=== PATIENT | female | born 1955 | race Caucasian/White ===

== ENCOUNTER → 2017-05-23 | Outpatient (CLI) | payer OTHER | LOC: FIMAGING 14:39 | PROVIDERS: ATTEND Specialist | DX: R93.41 Abnormal radiologic findings on diagnostic imaging of renal pelvis, ureter, or bladder (principal) ==

== ENCOUNTER 2017-05-24 12:19 | Emergency (ER) | payer OTHER ==
[2017-05-24 12:28] VITALS: TEMP 97.9
--- NOTE | 2017-05-24 12:33 | EDPHY ---
HPI/HX/ROS/PE/MDM Narrative: CHIEF COMPLAINT: Kidney stone HISTORY OF PRESENT ILLNESS: This patient is a 62 year old female with recent diagnosis of renal calculus complaining of left-sided abdominal and back pain. Six weeks ago, she was diagnosed with a 9x5mm kidney stone in the left kidney at the [facility] (?) at [facility]. Since then, she has had episodic severe bladder spasms. She was evaluated by her PCP and an x-ray showed suspected bladder stone. Urine culture positive at that time as well. She has been taking Keflex and Flomax. She has noticed a mucous-like discharge in her urine. Monday night, developed severe bladder cramping. She visited the ER at [facility], and CT located the stone at the [facility]. She had appointment with Dr. Birmingham yesterday and is scheduled for surgery Monday, as it seems the stone is too big to pass. This morning around 5:30am, the patient had considerable pain in her back and her bladder area. She took Percocet and was able to sleep, but her pain increased again around 10am. She has had no relief with another Percocet and a heating pad. Her discomfort is 10/ 10 in severity. She endorses associated nausea. No fever, chills, chest pain, shortness of breath, palpitations, vomiting, diarrhea, headache, lightheadedness. REVIEW OF SYSTEMS: Aside from elements discussed in the HPI, a comprehensive 10-point review of systems was reviewed and is negative. PAST MEDICAL HISTORY: Asthma. Hyperlipidemia. SOCIAL HISTORY: Daughter at bedside. . Lives in [place]. 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 VITAL SIGNS: Reviewed by me GENERAL: Well-developed, well-nourished, uncomfortable appearing. HEENT: Atraumatic. Eyes: No icterus, no injection. Mouth: Dry lips, dry mucous membranes. No erythema or lesions. Neck: supple with no adenopathy. LUNGS: Clear to auscultation bilaterally, no wheezes, rhonchi or rales. CARDIAC: Regular rate and rhythm, no rubs, murmurs or gallops. ABDOMEN: Left lower quadrant tenderness. Soft, nondistended, no guarding or rebound. BACK: Left flank pain. EXTREMITIES: No trauma. No edema. Range of motion is normal throughout. NEURO: Alert and oriented, grossly nonfocal. SKIN: Warm and dry, no rash. PSYCHIATRIC: Normal mentation, no agitation. Portions of this note were transcribed by a medical insurance biller. I personally performed a history, physical exam, medical decision making, and confirmed accuracy of information the transcribed note. ED Course: This 62 y/o female presents with left-sided back and abdominal pain secondary to a known kidney stone. Exam reveals left flank tenderness and LLQ tenderness. Plan to administer 30mg IV Toradol, 1mg IV Dilaudid and 4mg IV Zofran for symptom relief. Plan for labs including CBC, chemistries, UA. Plan for CT abdomen/pelvis to re-visualize stone. 14:[address] Hedrick, radiologist. 7x5mm stone at the bladder side of the left UVJ visualized on CT. Reassessed patient. She is feeling better following medication administration. Discussed imaging results. Patient and her family are concerned regarding her ongoing discomfort in as well as her ability to passage of large stone. I have tried accessed the records from a [facility] on chorea 0 to see the location of the stone on Monday, 2 days ago. Patient tells me that the stone was just outside the bladder and so she feels like the stone has moved through the bladder wall and is hopeful that she will improve with fluids and time. 14:[address] Vergara, urologist. Recommends toradol po, flomax BID, and narcotics if needed. Patient herself is comfortable being discharged home. She was given a prescription for Zofran which she had previously not had, Toradol with careful instructions regarding is no more than 4 days use, oral Dilaudid with instructions regarding not to mix the oral Dilaudid with Percocet, and return to the emergency department precautions. They will call Dr. Childs office to arrange close follow-up. MDM: Differential diagnosis of the patient's flank pain and abdominal pain was considered including but not limited to hydronephrosis, hydroureter, complicated urinary tract infection, extravasation of urine, kidney rupture, kidney stone. - Data Points Imaging Results: Imaging Impressions Abdomen/Pelvis CT 05/24/17 13:16 Impression: 7 x 5 mm calculus in the bladder side of the left ureterovesical junction. Moderate left hydroureter and hydronephrosis. Results called and discussed with Africa Chen MD on 05/24/2017 at 1401 hours. Attention: This CT examination is specifically designed to evaluate patients who are clinically suspected of having acute obstructive uropathy. This examination does not use radiographic contrast, and as such, provides only a limited evaluation of the abdomen, pelvis and retroperitoneum. If there is further clinical suspicion for pathological conditions other than obstructive uropathy, a complete CT evaluation of the abdomen and pelvis utilizing intravenous, oral, and rectal contrast should be considered. Imaging: Discussed imaging studies w/ call center support representative Radiologist Laboratory Results: Laboratory Results 05/24/17 12:41 05/24/17 12:41 05/24/17 05/24/17 05/24/17 13:05 12:41 12:41 WBC 6.93 10^3/uL 10^3/uL (3.80-9.50) RBC 4.38 10^6/uL 10^6/uL (4.18-5.33) Hgb 13.8 g/dL g/dL (12.6-16.3) Hct 42.0 % % (38.0-47.0) MCV 95.9 fL fL (81.5-99.8) MCH 31.5 pg pg (27.9-34.1) MCHC 32.9 g/dL g/dL (32.4-36.7) RDW 13.3 % % (11.5-15.2) Plt Count 141 10^3/uL L 10^3/uL (150-400) MPV 9.3 fL fL (8.7-11.7) Neut % (Auto) 73.1 % % (39.3-74.2) Lymph % (Auto) 19.2 % % (15.0-45.0) [place] % (Auto) 5.9 % % (4.5-13.0) Eos % (Auto) 1.2 % % (0.6-7.6) Baso % (Auto) 0.3 % % (0.3-1.7) Nucleat RBC Rel Count 0.0 % % (0.0-0.2) Absolute Neuts (auto) 5.07 10^3/uL 10^3/uL (1.70-6.50) Absolute Lymphs (auto) 1.33 10^3/uL 10^3/uL (1.00-3.00) Absolute Monos (auto) 0.41 10^3/uL 10^3/uL (0.30-0.80) Absolute Eos (auto) 0.08 10^3/uL 10^3/uL (0.03-0.40) Absolute Basos (auto) 0.02 10^3/uL 10^3/uL (0.02-0.10) Absolute Nucleated RBC 0.00 10^3/uL 10^3/uL (0-0.01) Immature Gran % 0.3 % % (0.0-1.1) Immature Gran # 0.02 10^3/uL 10^3/uL (0.00-0.10) Sodium 141 mEq/L mEq/L (135-145) Potassium 4.3 mEq/L mEq/L (3.5-5.2) Chloride 107 mEq/L mEq/L (97-110) Carbon Dioxide 25 mEq/l mEq/l (22-31) Anion Gap 9 mEq/L mEq/L (8-16) BUN 17 mg/dL mg/dL (7-23) Creatinine 0.8 mg/dL mg/dL (0.6-1.0) Estimated GFR > 60 Glucose 91 mg/dL mg/dL (70-100) Calcium 9.0 mg/dL mg/dL (8.5-10.4) Urine Color YELLOW Urine Appearance HAZY Urine pH 7.0 (5.0-7.5) Ur Specific [place] 1.023 (1.002-1.030) Urine Protein 2+ H (NEGATIVE) Urine Ketones TRACE H (NEGATIVE) Urine Blood 1+ H (NEGATIVE) Urine Nitrate NEGATIVE (NEGATIVE) Urine Bilirubin NEGATIVE (NEGATIVE) Urine Urobilinogen NEGATIVE EU EU (0.2-1.0) Ur Leukocyte Esterase NEGATIVE (NEGATIVE) Urine RBC 25-50 /hpf H /hpf (0-3) Urine WBC 1-3 /hpf /hpf (0-3) Ur Epithelial Cells TRACE /lpf /lpf (NONE-1+) Amorphous Sediment PRESENT /hpf /hpf (NONE-1+) Urine Mucus 1+ /lpf /lpf (NONE-1+) Urine Glucose NEGATIVE (NEGATIVE) Medications Given: Discontinued Medications Hydromorphone HCl (Dilaudid) 1 mg IVP EDNOW ONE Stop: 05/24/17 12:50 Last Admin: 05/24/17 13:11 Dose: 1 mg Sodium Chloride (Ns) 1,000 mls @ 0 mls/hr IV EDNOW ONE; Wide Open PRN Reason: Protocol Stop: 05/24/17 12:50 Last Admin: 05/24/17 13:22 Dose: 1,000 mls Sodium Chloride (Ns) 1,000 mls @ 0 mls/hr IV ONCE ONE PRN Reason: Wide Open Stop: 05/24/17 15:05 Last Admin: 05/24/17 15:06 Dose: 1,000 mls Ketorolac Tromethamine (Toradol) 30 mg IVP EDNOW ONE Stop: 05/24/17 12:50 Last Admin: 05/24/17 13:11 Dose: 30 mg Ondansetron HCl (Zofran) 4 mg IVP EDNOW ONE Stop: 05/24/17 12:50 Last Admin: 05/24/17 13:11 Dose: 4 mg Phenazopyridine HCl (Pyridium) 200 mg PO EDNOW ONE Stop: 05/24/17 14:02 Last Admin: 05/24/17 15:02 Dose: 200 mg General Time Seen by Provider: 05/24/17 12:27 Initial Vital Signs: Initial Vital Signs Temperature (C) 36.6 C 05/24/17 12:25 Heart Rate 79 05/24/17 12:25 Respiratory Rate 18 05/24/17 12:25 Blood Pressure 121/89 H 05/24/17 12:25 O2 Sat (%) 95 05/24/17 12:25 O2 Delivery Mode Nasal Cannula O2 (L/minute) 3 Allergies/Adverse Reactions: oseltamivir [From Tamiflu] Allergy (Verified 05/24/17 12:24) Home Medications: Medication Instructions Recorded Cyclobenzaprine [Flexeril 10 MG 10 mg PO TID PRN #15 tab 05/24/17 (*)] HYDROmorphone HCL [Dilaudid 2 mg 2 mg PO Q3-4PRN PRN #12 tab 05/24/17 (*)] Ketorolac Tromethamine 10 mg PO Q6H #16 tab 05/24/17 Ondansetron Odt [Zofran Odt 4 mg 4 mg PO Q6 #10 tab 05/24/17 (*)] Percocet 5/325 (*) 03/14/18 Symbicort 160-4.5 Mcg Inh (*) 05/24/17 Departure - Departure Disposition: Home, Routine, Self-Care Clinical Impression: Kidney stone on left side Condition: Good Instructions: Kidney Stones (ED) Additional Instructions: Take Percocet or Dilaudid as needed for severe pain. Use Zofran as needed for nausea. Take Toradol 10 mg 4 times a day for the next 4 days only. This will help with pain and inflammation. Take Flomax 0.4 mg 2 times a day, every 12 hr. You have also been given a prescription for Flexeril. This is a muscle relaxant. This may help control your discomfort. Call Dr. Childs office and make an appointment for the next 1-2 days. Continue to strain your urine. Return if you develop a fever, pain is not controlled by the above measures, nausea vomiting not controlled by the above measures, or other concerns. Followup with urology as directed below. Referrals: NAYAN VAIL [Other] - As per Instructions Mariann Birmingham MD [Medical Doctor] - As per Instructions Prescriptions: Cyclobenzaprine [Flexeril 10 MG (*)] 10 mg PO TID PRN #15 tab PRN Reason: Spasms HYDROmorphone HCL [Dilaudid 2 mg (*)] 2 mg PO Q3-4PRN PRN #12 tab PRN Reason: pain Ketorolac Tromethamine 10 mg PO Q6H #16 tab Ondansetron Odt [Zofran Odt 4 mg (*)] 4 mg PO Q6 #10 tab Report Scribed for: Africa Chen Report Scribed by: Liza Calloway Date of Report: 05/24/17 Time of Report: 12:33
[2017-05-24] MEDS ORDERED: KETOROLAC 30 MG/1 ML SDV IVP ONE (12:49)
[2017-05-24] MEDS ORDERED: NS 1,000 ML IV ONE ×2 (12:49→15:04)
[2017-05-24] MEDS ORDERED: ONDANSETRON 4 MG/2 ML VIAL IVP ONE (12:49)
[2017-05-24] MEDS ORDERED: HYDROmorphONE/DILAUDID 2 MG/ML INJ IVP ONE (12:49)
[2017-05-24 12:55] LABS: PLATELET COUNT 141 10^3/uL (150-400)
[2017-05-24] MEDS ORDERED: PHENAZOPYRIDINE HCL 200 MG TAB PO ONE (14:01)
[2017-05-24 15:03] VITALS: BP 120/65
[2017-05-24 15:18] VITALS: RESP 16
[2017-05-24 17:29] VITALS: PULSE 80; O2SAT 99
== END 2017-05-24 17:26 | disposition home or self-care (01) ==
DX: N20.0 Calculus of kidney (principal); J45.909 Unspecified asthma, uncomplicated; E86.9 Volume depletion, unspecified
CPT/HCPCS: 96374; J1170; J1885; J2405

== ENCOUNTER 2017-05-25 12:43 | Day surgery (SDC) | payer OTHER ==
[2017-05-25] MEDS ORDERED: levOFLOXACIN 500 MG/DEXTROSE 100 ML IV ONE (13:15)
[2017-05-25] MEDS ORDERED: LR 1,000 ML IV ONE (13:16)
[2017-05-25] MEDS ORDERED: LIDOCAINE 1% 2 ML INJ ID PRN (13:16)
[2017-05-25] MEDS ORDERED: LIDOCAINE 2% JELLY 20 ML (UROJECT) ONE (13:26)
[2017-05-25] MEDS ORDERED: IOPAMIDOL (ISOVUE-M 300) 15 ML VIAL ONE ×3 (13:27→14:33)
--- NOTE | 2017-05-25 13:31 | PDANEPAE ---
ANE History of Present Illness 62 year old female for cystoscopy, ureteroscopy and laser lithotripsy. ANE Past Medical History - Cardiovascular History Hx Hypertension: No Hx Arrhythmias: No Hx Chest Pain: No Hx Coronary Artery / Peripheral Vascular Disease: No Hx CHF / Valvular Disease: No Hx Palpitations: No - Pulmonary History Hx COPD: No Hx Asthma/Reactive Airway Disease: Yes Hx Recent Upper Respiratory Infection: Yes Hx Oxygen in Use at Home: No Hx Sleep Apnea: No - Endocrine History Hx Diabetes: No Hypothyroid: No Hyperthyroid: No Obesity: no - Renal History Hx Renal Disorders: No - Liver History Hx Hepatic Disorders: No - Neurological & Psychiatric Hx Hx Neurological and Psychiatric Disorders: No - Cancer History Hx Cancer: No - Congenital Disorder History Hx Congenital Disorders: No - GI History GERD: no Hx Gastrointestinal Disorders: No - Chronic Pain History Chronic Pain: No ANE Review of Systems Review of systems is: negative Review of Systems: - Exercise capacity Exercise capacity: >=4 METS ANE Patient History - Allergies Allergies/Adverse Reactions: oseltamivir [From Tamiflu] Allergy (Verified 05/24/17 12:24) - Home Medications Home medications: home medication list seen and reviewed Home Medications: Percocet 5/325 (*) 05/24/17 [Last Taken 05/25/17] Symbicort 160-4.5 Mcg Inh (*) 05/24/17 [Last Taken 05/25/17] - NPO status NPO Status: no food or drink >8 hours - Anes Hx Anes Hx: no prior problems - Smoking Hx Smoking Status: Never smoked Marijuana use: No - Alcohol Use Alcohol Use: Rarely - Family Anes Hx Family Anes Hx: neg - N/A ANE Labs/Vital Signs - Vital Signs Vital Signs: reviewed preoperatively; see RN documention for details ANE Physical Exam - Airway Neck exam: FROM Mallampati Score: Class 3 Mouth exam: normal dental/mouth exam - Pulmonary Pulmonary: no respiratory distress - Cardiovascular Cardiovascular: regular rate and rhythym - ASA Status ASA Status: II ANE Anesthesia Plan Anesthesia Plan: GA w LMA Total IV Anesthesia: No
[2017-05-25] MEDS ORDERED: MIDAZOLAM 2 MG/2 ML VIAL IVP ONE (13:44)
[2017-05-25] MEDS ORDERED: MIDAZOLAM 2 MG/2 ML VIAL ONE (13:45)
[2017-05-25] MEDS ORDERED: PROPOFOL 200 MG/20 ML VIAL ONE (13:47)
[2017-05-25] MEDS ORDERED: fentaNYL 100 MCG/2 ML INJ ONE (13:47)
[2017-05-25] MEDS ORDERED: DEXAMETHASONE 4 MG/ML VIAL ONE (13:50)
--- NOTE | 2017-05-25 13:59 | PDHPUP ---
History & Physical Update H&P update statement: This history and physical update is based on an assessment of the patient which was completed after admission or registration (within 24 hours), but prior to the surgery/procedure. H&P update: no change in patient's condition since H&P completed
[2017-05-25] MEDS ORDERED: ONDANSETRON 4 MG/2 ML VIAL ONE (14:33)
[2017-05-25] MEDS ORDERED: PHENYLEPHRINE HCL 100 MCG/ML SYR ONE (14:34)
[2017-05-25] MEDS ORDERED: KETOROLAC 30 MG/1 ML SDV ONE (14:50)
--- NOTE | 2017-05-25 15:17 | POSTOPPROG ---
Post Op Note Date of Operation: 05/25/17 Surgeon: Mariann Birmingham (# [id number]) Anesthesia: LMA Pre-op Diagnosis: Distal left ureteral calculus Post-op Diagnosis: Distal left ureteral calculus Procedure: Left ureteroscopy w/ laser litho & basket extraction, stent placement Findings: See op note Inf/Abcess present in the surg proc area at time of surgery?: No EBL: Minimal Complications: None Drains: Other (4.7 Fr. x 26 cm left ureteral stent) Specimen(s): Left ureteral calculus fragments
[2017-05-25] MEDS ORDERED: DEXAMETHASONE 4 MG/ML VIAL IVP PRN (15:23)
[2017-05-25] MEDS ORDERED: HYDROCODONE/APAP 5/325 TAB PO PRN (15:23)
[2017-05-25] MEDS ORDERED: fentaNYL 100 MCG/2 ML INJ IVP PRN (15:23)
[2017-05-25] MEDS ORDERED: PHENYLEPHRINE HCL 100 MCG/ML SYR IVP PRN (15:23)
[2017-05-25] MEDS ORDERED: NALOXONE HCL 0.4 MG/ML INJ IVP PRN (15:23)
[2017-05-25] MEDS ORDERED: ONDANSETRON 4 MG/2 ML VIAL IVP PRN (15:23)
[2017-05-25] MEDS ORDERED: LR 500 ML IV PRN (15:23)
--- NOTE | 2017-05-25 15:46 | GOP ---
[f rep st] OPERATIVE REPORT DATE OF OPERATION: 05/25/2017 SURGEON: Mariann Birmingham MD ANESTHESIA: Laryngeal mask. PREOPERATIVE DIAGNOSIS: Symptomatic left distal ureteral calculus. POSTOPERATIVE DIAGNOSIS: 1. Distal left ureteral calculus. 2. Large cystocele. PROCEDURE PERFORMED: 1. Cystourethroscopy, left retrograde pyelography. 2. Left ureteroscopy with holmium laser calculus lithotripsy and basket extraction. 3. Left ureteral stent placement (4.7-[place] by 26 cm). FINDINGS: SPECIMENS: Left ureteral calculus fragments. ESTIMATED BLOOD LOSS: Minimal. INDICATIONS: This woman has been dealing with symptoms related to a left-sided ureteral calculus for about 1 month. She has been unable to pass the stone spontaneously. It was recommended that she un dergo intraoperative management. The indications for the procedures as well as potential risks and c omplications were discussed with the patient preoperatively. She appeared to understand, her questio ns were answered, and she wished to proceed. Written informed surgical consent was thereafter obtain ed. DESCRIPTION OF PROCEDURE: The patient was brought to the operative room and administered laryngeal m ask anesthesia. She was carefully placed in the dorsal lithotomy position on the cystoscopic table. The genital area was sterilely prepped with Betadine scrub and paint, and draped in usual sterile fa shion. Perineal examination revealed the patient to have a large cystocele which extended while supi ne to the vaginal introitus. I inserted the 22-[place] cystoscopic sheath with the obturator and a 30 -degree lens. The urethra was unremarkable. Examination of bladder revealed significant descent of the bladder base as a result of the large cystocele. This resulted in significant trigonal distortio n, which made it difficult to identify the location of the ureteral orifices. As a result, I placed some moist 4 x 4 gauze into the vaginal canal in order to temporarily reduce the cystocele. This all owed for better visualization of the ureteral orifices bilaterally. There was a fair amount of edema surrounding the left ureteral orifice. Otherwise, the bladder was normal. Right ureteral orifice w as normal in regard to shape and position along the trigone. The left ureteral orifice was extremely tight. I was ultimately able to intubate it with a combinati on of a 5-[place] open-ended ureteral catheter and an angle tipped 0.035 inch hydrophilic guidewire. There was resistance noted within the intramural portion of the ureter, which was the location where the calculus was and noted to be preoperatively on CT scan and subsequent KUB. With spot fluoroscopi c guidance, I was able to locate the position of the ureteral calculus in the intramural portion of [facility] ureter. I was ultimately able to navigate the wire proximal to the calculus and into the renal co llecting system as noted fluoroscopically. I then removed the ureteral catheter and dilated the dist al ureter with a 4 cm balloon by maintaining a pressure of 16 atmospheres for about 4 minutes. The b alloon dilator and cystoscope were then removed while keeping the guidewire in place. Semi-rigid ure teroscopy was performed alongside the guidewire. A sizable calculus was seen in the distal portion o f the ureter. A 365 micron holmium laser fiber was used to fragment the calculus. Fragments were th en retrieved from the ureter using a zero-tip Nitinol stone basket. These fragments were sent to [facility] for chemical analysis. The ureteroscope was then advanced into the proximal ureter. Contrast was injected through the urete roscope to highlight the renal collecting system. There was mild dilation, but otherwise, no abnorma lities appreciated within the renal collecting system nor ureter. The ureteroscope was removed and [facility] cystoscope was back-loaded over the guidewire. I initially inserted a 4.7-[place] by 24 cm hydroph ilic ureteral stent over the guidewire and positioned it so that it was within the renal collecting s ystem fluoroscopically and curling in the bladder distally. However, this stent did not appear to be long enough. Therefore, I exchanged this stent for a 4.7 x 26 cm stent, which appeared to be in bet ter position at the end of the procedure. The bladder was then drained of all return, which was relatively clear. The instruments were removed and 20 cc of 2% lidocaine injected transurethrally for postoperative analgesic purposes. The patien t was also given Toradol 30 mg IV by Anesthesia near the conclusion of the case. The 4 x 4 gauze fatemeh gerardo in the vaginal canal was then removed. The patient was then awakened, transferred to her bed, th en taken to the recovery room. She tolerated the procedure well overall. COMPLICATIONS: None. DISPOSITION: She was transferred to the recovery room in stable condition and will be instructed to return to my office in 1-2 weeks for ureteral stent removal. Copy requested to: Alicia Salomon MD [facility], [place] /[id number]/MODL
[2017-05-25] MEDS ORDERED: PHENAZOPYRIDINE HCL 200 MG TAB PO ONE (16:00)
[2017-05-25 16:12] VITALS: BP 110/71; PULSE 81; RESP 14; TEMP 98.1
[2017-05-25 17:21] VITALS: O2SAT 96
--- NOTE | 2017-05-25 20:04 | POSTANESTH ---
Post Anesthetic Evaluation Cardiovascular Status: Normal, Stable, Similar to Pre-Op Cond Respiratory Status: Similar to Pre-op Cond., Tx Decrease in SpO2 (Patient with low SpO2 on admission to ED. Patient with recent URI in addition to narcotic pain medication. Patient has supplemental O2 source at home.) Level of Consciousness/Mental Status: Can Participate in Eval, Alert and Oriented Pain Control: Adequate, Prn Tx Ordered Nausea/Vomiting Control: Adequate, Prn Tx Ordered Complications Possibly Related to Anesthesia: None Noted
== END 2017-05-25 17:18 | disposition home or self-care (01) ==
LOC: FSGY 12:43
PROVIDERS: ATTEND Specialist
PROC: BT171ZZ Fluoroscopy of Left Ureter using Low Osmolar Contrast (ICD-10-PCS; principal; 2017-05-25 13:45)
PROC: 0TC78ZZ Extirpation of Matter from Left Ureter, Via Natural or Artificial Opening Endoscopic (ICD-10-PCS; principal; 2017-05-25 13:45)
PROC: 0T9780Z Drainage of Left Ureter with Drainage Device, Via Natural or Artificial Opening Endoscopic (ICD-10-PCS; principal; 2017-05-25 13:45)
DX: N20.1 Calculus of ureter (principal); N81.10 Cystocele, unspecified
CPT/HCPCS: 52356; 76001; C1726; C1758; C1769; 82365-90; C2625; J1100; J1885; J1956; J2250; J2370; J2405; J2704; J3010; Q9967

== ENCOUNTER → 2018-08-23 | Outpatient (CLI) | payer OTHER | LOC: FIMAGING 13:09 ==